=== PATIENT | male | born 2000 ===

== ENCOUNTER 2022-10-24 08:00 | Outpatient (RCR) | payer OTHER, SELFPAY ==
[2022-10-09 13:30] VITALS: BP 122/74; PULSE 72; TEMP 36.8
[2022-10-09 13:34] VITALS: BMI 26.4
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
--- NOTE | 2022-10-09 15:43 | PC.ADMIT ---
Patient is a 22 year old male who was referred to [facility] by his therapist d/t worsening depression, anxiety, and OCD sxs. Per assessment patient having intrusive thoughts when around children to hurt them. He told me that this scares him. He denied any intention or plans to harm children reports he is having thoughts. Stated when he is not around children he does not have the thoughts. Denied any history of hurting children. Patient reports he is struggling with increased depression. He lives with his parents whom he stated are very supportive. Patient is currently taking a leave of absence from work to attend [facility] to work on his mental health. 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 He does have a dx of Asperger's however noted to be high functioning. Patient is alert and oriented x4. Calm and cooperative. Reports passive SI, denied plan or intent. Patient given a copy of his safety plan if needed. Medications reconciled with patient and patient's pharmacy. Patient reports taking medications as prescribed.
--- NOTE | 2022-10-10 08:47 | PC.NURSE ---
Phoenix from Aram's insurance company called late yesterday and left a message stating they were not sure if he has a mental health benefit. [place] stated they were gong to expedite this case and did state that he met level of care. Phoenix is to call me today to confirm whether or not he has the benefit. I called and let Aram know the above information. He will not be in today as he does not want to get a bill if this is not covered by insurance. I told him he could call his insurance and we will be working on this as well. [facility] staff are aware.
--- NOTE | 2022-10-10 12:45 | PC.NURSE ---
Spoke to Phoenix from patient's insurance company, patient does have the mental health benefit, authorization obtained. I informed Aram and he will be coming to [facility] tomorrow.
--- NOTE | 2022-10-10 15:01 | HO.PHPIOP ---
Case opened in tx team
[2022-10-15 13:30] LABS: Amphetamine Screen Urine Not Detected (Not Detect); Barbiturates, Urine Not Detected (Not Detect); Benzodiazepines Screen Urine Not Detected (Not Detect); Cannabinoid Screen Urine Not Detected (Not Detect); Cocaine Screen Urine Not Detected (Not Detect); Fentanyl, urine Not Detected (Not Detect); Opiate Screen Urine Not Detected (Not Detect); Phencyclidine Screen Urine Not Detected (Not Detect)
--- NOTE | 2022-10-15 15:19 | HO.PHPPROGNO ---
Subjective Subjective Date of Service: 10/15/22 Reason For Visit: MDD,OCD Medical Problems Affecting Mental Status: No Interim History: Describes mood as ?okay ?. No SI/HI. Continues with intrusive thoughts, states they have lessened. Reports that he had time to share in group this morning, in that is this help him with his mood. Complains about the noise level at home. Concerned about returning to work, finding it helpful currently to have some time to himself. States that he is still addicted to my phone . Medication Compliance: Yes Side effects from medications: No Attending Groups: Yes Review of Systems Acute medical concerns: No Medical Review of Systems: unchanged Review of Systems Review of Systems Yes all other systems are reviewed and are negative Constitutional: Reports no additional constitutional complaints Mental Status Exam Mental Status Exam Narrative: NAD Patient Appearance: Well Grooomed and Appropriate Patient Orientation: Person, Place, Time and Situation Level of Consciousness: Appropriate and Alert Patient Behavior: Appropriate, Cooperative and Good Eye Contact Mood Description: Appropriate Affect Description: Blunted and Flat Patient Cognition Impaired: No Ability to Follow Directions: Good Speech Pattern: Clear, Appropriate, Monotone and Coherent Memory Description: Intact Hallucinations: None Delusions: Not Present Thought Process: Rumination Thought Content: positive for Obsessional Thoughts Depressive Symptoms: Loss of Int. in Activity, Hopelessness, Feelings of Guilt, Unhappiness, Increased Fatigue, Loss of Energy and Difficulty Concentrating Judgement: Fair Diagnostics Vital Signs (24Hr): BMI result Body Mass Index 26.4 Labs Labs: Laboratory Results - last 48 hr 10/15/22 10:45 Urine Opiates Screen Not Detected Urine Fentanyl Screen Not Detected Ur Barbiturates Screen Not Detected Ur Phencyclidine Scrn Not Detected Ur Amphetamines Screen Not Detected U Benzodiazepines Scrn Not Detected Urine Cocaine Screen Not Detected U Marijuana (THC) Screen Not Detected Assessment & Plan Assessment & Plan (1) Major depressive disorder, recurrent, moderate: Status: Acute Code(s): F33.1 - Major depressive disorder, recurrent, moderate Assessment and Plan: Describes mood as ?okay . No SI/HI. No safety concerns. Continues with intrusive thoughts, states they have lessened. Reports that he had time to share in group this morning, in that is this help him with his mood. Complains about the noise level at home. States that his family has people over in the evenings and weekends, and that he finds this to stimulating, as there is too much noise in the house. Discussed ways to help minimize knowing his, and allow him to have time to himself. Suggested noise cancelling headphones, spending time alone for 1-2 hours when he gets home. States he is unsure if he will try these. Expresses resentment towards his mother. Reports that his mother encourages to set him to meditate it night to help fall asleep. He states that he finds this annoying. Reports that she knocks on the door, and that he does not like this. Patient reports he has gotten angry, has difficulty controlling his temper at times. Concerned about returning to work, finding it helpful currently to have some time to himself. Prefers to be alone, in quiet space. Discussed current medication regimen. Patient does not want any changes at this time. (2) OCD (obsessive compulsive disorder): Status: Acute Code(s): F42.9 - Obsessive-compulsive disorder, unspecified (3) ADHD: Status: Acute Code(s): F90.9 - Attention-deficit hyperactivity disorder, unspecified type (4) Aspergers' syndrome: Status: Acute Code(s): F84.5 - Asperger's syndrome Plan 1. Continue with current [facility] plan of care. 2. Continue with medication regimen as currently prescribed by outpatient provider. 3. Follow-up as per protocol. Patient educated on: diagnosis, medication risk/benefits and therapeutic strategies Informed Consent: understands Reason for contiued partial hosp. stay Substantial Risk for: harm to self, harm to others, inability to function and rapid decompensation Certification I certify that partial hospital treatment is medically necessary due to the symptoms and problems resulting from the patient's mental illness and the failure to treat the patient at the partial hospital level of care would likely result in the patient requiring inpatient psychiatric care which could not be prevented at a less intensive level of care. Total time managing care of this patient today ___25_ minutes. Discharge Plan Discharge Attending provider: Nj Dotson Medications: No Action sertraline [Zoloft] 100 mg tablet 1 tab PO DAILY methylphenidate HCl [Concerta] 54 mg tablet extended release 24hr 1 tab PO QAM quetiapine [Seroquel] 50 mg tablet 1 tab PO BEDTIME
--- NOTE | 2022-10-24 15:49 | HO.PHPPROGNO ---
Subjective Subjective Date of Service: 10/24/22 Reason For Visit: MDD,OCD Medical Problems Affecting Mental Status: No Interim History: Improved mood and affect, states I feel better than when I started . Less anxious, less depressed. Affect More animated, less flat. Engaged in conversation with this internal communications writer. Continues with some intrusive thoughts, says they have lessened. No SI/HI, no safety concerns. Contemplating whether or not he will return to current job or work somewhere else, due to increased job stress. Feels ready for discharge from [facility] at this time. Medication Compliance: Yes Side effects from medications: No Attending Groups: Yes Review of Systems Acute medical concerns: No Medical Review of Systems: unchanged Review of Systems Review of Systems Yes all other systems are reviewed and are negative Constitutional: Reports no additional constitutional complaints Mental Status Exam Mental Status Exam Narrative: NAD. More engagable. Patient Appearance: Well Grooomed and Appropriate Patient Orientation: Person, Place, Time and Situation Level of Consciousness: Appropriate and Alert Patient Behavior: Appropriate, Cooperative and Good Eye Contact Mood Description: Appropriate, Depressed (improved) and Anxious (improved) Affect Description: Calm and Appropriate Patient Cognition Impaired: No Ability to Follow Directions: Good Speech Pattern: Clear, Appropriate and Coherent Memory Description: Intact Hallucinations: None Delusions: Not Present Thought Content: positive for Obsessional Thoughts (reports lessened) Judgement: Good Diagnostics Vital Signs (24Hr): BMI result Body Mass Index 26.4 Assessment & Plan Assessment & Plan (1) Major depressive disorder, recurrent, moderate: Status: Acute Code(s): F33.1 - Major depressive disorder, recurrent, moderate Assessment and Plan: Improved mood and affect, states I feel better than when I started . Less anxious, less depressed. Satisfied with current medication regimen. Affect More animated, less flat. Engaged in conversation with this internal communications writer. Continues with some intrusive thoughts, says they have lessened. Reports that he knows the thoughts increase when he is under increased stress, and that he is now trying to practice more self-care, giving himself down-time to regroup. No SI/HI, no safety concerns. Contemplating whether or not he will return to current job or work somewhere else, due to increased job stress. He likes his work, but found himself working too hard. Now rethinking this. Feels ready for discharge from [facility] at this time. (2) OCD (obsessive compulsive disorder): Status: Acute Code(s): F42.9 - Obsessive-compulsive disorder, unspecified Plan 1. Patient appears stable for discharge from [facility] at this time. 2. Follow-up with outpatient providers going forward. Patient educated on: diagnosis, medication risk/benefits and therapeutic strategies Informed Consent: understands Reason for contiued partial hosp. stay Substantial Risk for: stable for discharge Certification I certify that partial hospital treatment is medically necessary due to the symptoms and problems resulting from the patient's mental illness and the failure to treat the patient at the partial hospital level of care would likely result in the patient requiring inpatient psychiatric care which could not be prevented at a less intensive level of care. Total time managing care of this patient today ___20_ minutes. Discharge Plan Discharge Attending provider: Nj Dotson Medications: No Action sertraline [Zoloft] 100 mg tablet 1 tab PO DAILY methylphenidate HCl [Concerta] 54 mg tablet extended release 24hr 1 tab PO QAM quetiapine [Seroquel] 50 mg tablet 1 tab PO BEDTIME Stand Alone Forms: Patient Portal Discharge page Patient Education: Depression (DC), Obsessive Compulsive Disorder (DC)
== END 2022-10-24 23:59 | disposition home or self-care (01) ==
LOC: HO.PHPA 08:00
PROVIDERS: Nurse Practitioner Psychiatric/Mental Health; Visit Provider Psychiatry & Neurology Psychiatry
DX: F33.1 Major depressive disorder, recurrent, moderate (principal); F42.9 Obsessive-compulsive disorder, unspecified; F90.9 Attention-deficit hyperactivity disorder, unspecified type; F84.5 Asperger's syndrome; Z79.899 Other long term (current) drug therapy
CPT/HCPCS: 80307; 90791; 90853